=== PATIENT | male | born 2000 | race Caucasian/White ===

== ENCOUNTER 2021-08-23 13:02 | Emergency (ER) | payer SELFPAY ==
--- NOTE | 2021-08-23 13:56 | ED ---
ENT HPI - General Stated complaint: difficulty swallowing Time Seen by Provider: 08/23/21 13:54 Source: patient, RN notes reviewed Mode of arrival: ambulatory Limitations: no limitations - History of Present Illness Initial comments: 21-year-old male presents emergency Department with chief complaint of sore throat. Patient is very painful to swallow. Patient states symptoms started 2 days ago. Patient states that he's had a fever. Patient has no fatigue no history of mono. States that no other cold-like symptoms COVID-19 exposures. Patient's abdominal pain. - Related Data Previous Rx's Medication Instructions Recorded Azithromycin [Zithromax Z-pack (6 0 mg PO DIRECTED #1 packet 08/23/21 tabs)] predniSONE 50 mg PO DAILY #5 tab 08/23/21 Review of Systems ROS Statement: Those systems with pertinent positive or pertinent negative responses have been documented in the HPI. ROS Other: All systems not noted in ROS Statement are negative. General Exam General appearance: alert, in no apparent distress Head exam: Present: atraumatic, normocephalic, normal inspection Eye exam: Present: normal appearance, PERRL, EOMI. Absent: scleral icterus, conjunctival injection, periorbital swelling ENT exam: Present: mucous membranes moist. Absent: normal oropharynx (Bilateral erythema, states noted) Neck exam: Present: normal inspection, full ROM. Absent: tenderness, meningismus, lymphadenopathy Respiratory exam: Present: normal lung sounds bilaterally. Absent: respiratory distress, wheezes, rales, rhonchi, stridor Cardiovascular Exam: Present: regular rate, normal rhythm, normal heart sounds. Absent: systolic murmur, diastolic murmur, rubs, gallop, clicks Medical Decision Making - Medical Decision Making Patient has no evidence of tonsillar abscess. Patient has acute tonsillitis. Patient placed on antibiotics, steroids. Patient follow-up with PCP return for any worsening changes symptoms. Disposition Clinical Impression: Acute infective tonsillitis Disposition: HOME SELF-CARE Condition: Stable Instructions (If sedation given, give patient instructions): Tonsillitis (ED) Additional Instructions: Please return to the Emergency Department if symptoms worsen or any other concerns. Prescriptions: predniSONE 50 mg PO DAILY #5 tab Azithromycin [Zithromax Z-pack (6 tabs)] 0 mg PO DIRECTED #1 packet Is patient prescribed a controlled substance at d/c from ED?: No Referrals: None,Stated [Primary Care Provider] - 1-2 days Time of Disposition: 13:56
[2021-08-23 13:57] VITALS: BP 147/90; PULSE 63; RESP 18; TEMP 98
== END 2021-08-23 14:02 | disposition home or self-care (01) ==
LOC: EC 13:02
DX: J03.90 Acute tonsillitis, unspecified (principal)
CPT/HCPCS: 99283